=== PATIENT | male | born 1960 | race Caucasian/White ===

== ENCOUNTER 2017-01-03 18:46 | Inpatient (IN) | payer OTHER ==
[~2017-01-03] VITALS: Ht 175.3 cm; Wt 78.5 kg
[2017-01-03 20:24] LABS: HEMOGLOBIN 14.1 gm/dl (14.0-17.5); RED BLOOD COUNT 4.2 M/UL (4.20-5.50); WHITE BLOOD COUNT 15.9 K/UL (4.5-11.0)
[2017-01-04] MEDS ORDERED: QUINAPRIL HCL40 MG PO (00:53)
[2017-01-04] MEDS ORDERED: NEURONTIN 300300 MG PO (00:53)
[2017-01-04] MEDS ORDERED: NOVOLOG MI100 UNIT/2 SQ (00:54)
[2017-01-04] MEDS ORDERED: ALPRAZOLAM0.5 MG PO (00:56)
[2017-01-04] MEDS ORDERED: NORVASC 5 MG TAB5 MG PO (00:56)
[2017-01-04] MEDS ORDERED: VIAGRA100 MG PO (00:58)
[2017-01-04] MEDS ORDERED: VITAMIN D50000 UNIT PO (00:59)
[2017-01-04 03:33] LABS: HEMOGLOBIN 12.2 gm/dl (14.0-17.5)
[2017-01-04 03:35] LABS: RED BLOOD COUNT 3.67 M/UL (4.20-5.50); WHITE BLOOD COUNT 7.2 K/UL (4.5-11.0)
[2017-01-04 09:22] LABS: HEMOGLOBIN 12.5 gm/dl (14.0-17.5); RED BLOOD COUNT 3.69 M/UL (4.20-5.50); WHITE BLOOD COUNT 5.2 K/UL (4.5-11.0)
[2017-01-04 09:37] LABS: BUN/CREATININE RATIO 12 (0-10)
[2017-01-04 13:53] LABS: HEMOGLOBIN 12.4 gm/dl (14.0-17.5); RED BLOOD COUNT 3.7 M/UL (4.20-5.50); WHITE BLOOD COUNT 5.5 K/UL (4.5-11.0)
[2017-01-04 14:15] LABS: BUN/CREATININE RATIO 13 (0-10)
[2017-01-04 19:06] LABS: BUN/CREATININE RATIO 12 (0-10)
[2017-01-05 07:30] LABS: BUN/CREATININE RATIO 9 (0-10)
[2017-01-05 13:24] LABS: HEMOGLOBIN 12.1 gm/dl (14.0-17.5); RED BLOOD COUNT 3.62 M/UL (4.20-5.50); WHITE BLOOD COUNT 5.3 K/UL (4.5-11.0)
[2017-01-06 05:07] LABS: HEMOGLOBIN 11.3 gm/dl (14.0-17.5); RED BLOOD COUNT 3.45 M/UL (4.20-5.50)
[2017-01-06 05:15] LABS: WHITE BLOOD COUNT 3.8 K/UL (4.5-11.0)
[2017-01-06 05:32] LABS: BUN/CREATININE RATIO 10 (0-10)
[2017-01-07 06:39] LABS: HEMOGLOBIN 11.7 gm/dl (14.0-17.5); RED BLOOD COUNT 3.52 M/UL (4.20-5.50); WHITE BLOOD COUNT 3.9 K/UL (4.5-11.0)
[2017-01-07 06:57] LABS: BUN/CREATININE RATIO 14 (0-10)
[2017-01-08 04:46] LABS: HEMOGLOBIN 11.4 gm/dl (14.0-17.5); RED BLOOD COUNT 3.41 M/UL (4.20-5.50); WHITE BLOOD COUNT 4.4 K/UL (4.5-11.0)
[2017-01-08 05:15] LABS: BUN/CREATININE RATIO 13 (0-10)
[2017-01-08] MEDS ORDERED: ASPIRIN CHEWABL81 MG PO (14:26)
[2017-01-08] MEDS ORDERED: LIPITOR40 MG PO (14:27)
[2017-01-08] MEDS ORDERED: NOVOLOG MI100 UNIT/2 SQ (14:29)
[2017-01-08] MEDS ORDERED: LOPRESSOR 25 MG25 MG PO (14:30)
[2017-01-08] MEDS ORDERED: BRILINTA90 MG PO (14:30)
[2017-01-08] MEDS ORDERED: TYLENOL 325MG325 MG PO (14:31)
[2017-01-08] MEDS ORDERED: LEVAQUIN750 MG PO (14:33)
== END 2017-01-08 15:23 | disposition home or self-care (01) | DRG 250 ==
LOC: ER1 18:46 → ZEROF 23:06 → CCU 01-04 00:34 → M/S 01-06 20:44 → PROG CARE 01-07 18:25
PROVIDERS: Family Medicine; Internal Medicine Cardiovascular Disease; Internal Medicine Nephrology; Specialist/Technologist Athletic Trainer; ADMIT Internal Medicine
PROC: 02703ZZ Dilation of Coronary Artery, One Artery, Percutaneous Approach (ICD-10-PCS; principal; 2017-01-07)
DX: I21.4 Non-ST elevation (NSTEMI) myocardial infarction (principal); J69.0 Pneumonitis due to inhalation of food and vomit; E13.10 Other specified diabetes mellitus with ketoacidosis without coma; J96.01 Acute respiratory failure with hypoxia; M62.82 Rhabdomyolysis; N17.9 Acute kidney failure, unspecified; D61.818 Other pancytopenia; J98.11 Atelectasis; K92.0 Hematemesis; I25.10 Atherosclerotic heart disease of native coronary artery without angina pectoris; Z95.5 Presence of coronary angioplasty implant and graft; R74.0 Nonspecific elevation of levels of transaminase and lactic acid dehydrogenase [LDH]; E86.0 Dehydration; F41.0 Panic disorder [episodic paroxysmal anxiety]; E78.5 Hyperlipidemia, unspecified; E87.5 Hyperkalemia; F10.10 Alcohol abuse, uncomplicated; N40.0 Benign prostatic hyperplasia without lower urinary tract symptoms; D64.9 Anemia, unspecified; F17.290 Nicotine dependence, other tobacco product, uncomplicated; Z82.49 Family history of ischemic heart disease and other diseases of the circulatory system; Z79.899 Other long term (current) drug therapy; Z79.4 Long term (current) use of insulin; I50.9 Heart failure, unspecified; R31.9 Hematuria, unspecified; R74.8 Abnormal levels of other serum enzymes; R07.9 Chest pain, unspecified; G89.4 Chronic pain syndrome; G56.00 Carpal tunnel syndrome, unspecified upper limb; Z83.3 Family history of diabetes mellitus; K70.9 Alcoholic liver disease, unspecified; Z51.5 Encounter for palliative care
CPT/HCPCS: ECHO; 36415; 36600; 71010; 71020; 80048; 80053; 80076; 80307; 81001; 82009; 82550; 82553; 82607; 82693; 82746; 82800; 82803; 82962; 83036; 83605; 83690; 83735; 83874; 83880; 83921; 83930; 84100; 84484; 85025; 85027; 85347; 87040; 87086; 92920; 93005; 93306; 94640; 94664; 96361; 96374; 96375; 96376; 99285; C1725; C1769; C1887; C9113; G0480; J0461; J0583; J0610; J1644; J1815; J2060; J2250; J2405; J2543; J2550; J3010; J3411; J7030; J7050; Q9963

== ENCOUNTER 2017-01-11 23:01 | Inpatient (IN) | payer OTHER ==
[~2017-01-11] VITALS: Ht 175.3 cm; Wt 78.5 kg
[~2017-01-11 23:01] MED LIST: ALPRAZOLAM0.5 MG PO; ASPIRIN CHEWABL81 MG PO; BRILINTA90 MG PO; LEVAQUIN750 MG PO; LIPITOR40 MG PO; LOPRESSOR 25 MG25 MG PO; NEURONTIN 300300 MG PO; NORVASC 5 MG TAB5 MG PO; NOVOLOG MI100 UNIT/2 SQ; QUINAPRIL HCL40 MG PO; TYLENOL 325MG325 MG PO; VIAGRA100 MG PO; VITAMIN D50000 UNIT PO
[2017-01-11 23:40] LABS: RED BLOOD COUNT 3.61 M/UL (4.20-5.50); WHITE BLOOD COUNT 11.3 K/UL (4.5-11.0)
[2017-01-12 05:05] LABS: RED BLOOD COUNT 3.57 M/UL (4.20-5.50)
[2017-01-12 05:11] LABS: WHITE BLOOD COUNT 7.4 K/UL (4.5-11.0)
[2017-01-12 19:20] LABS: BUN/CREATININE RATIO 14 (0-10)
[2017-01-13 01:15] LABS: BUN/CREATININE RATIO 12 (0-10)
[2017-01-13 03:48] LABS: HEMOGLOBIN 11.3 gm/dl (14.0-17.5); RED BLOOD COUNT 3.4 M/UL (4.20-5.50)
[2017-01-13 03:50] LABS: WHITE BLOOD COUNT 9.7 K/UL (4.5-11.0)
[2017-01-13 04:10] LABS: BUN/CREATININE RATIO 11 (0-10)
[2017-01-13 07:14] LABS: BUN/CREATININE RATIO 10 (0-10)
[2017-01-13 18:32] LABS: BUN/CREATININE RATIO 7 (0-10)
[2017-01-14 00:42] LABS: BUN/CREATININE RATIO 7 (0-10)
[2017-01-14 06:01] LABS: HEMOGLOBIN 9.8 gm/dl (14.0-17.5); RED BLOOD COUNT 2.97 M/UL (4.20-5.50); WHITE BLOOD COUNT 3.8 K/UL (4.5-11.0)
[2017-01-14 06:16] LABS: BUN/CREATININE RATIO 8 (0-10)
[2017-01-14 12:24] LABS: BUN/CREATININE RATIO 8 (0-10)
[2017-01-15 06:29] LABS: HEMOGLOBIN 10.9 gm/dl (14.0-17.5); WHITE BLOOD COUNT 3.6 K/UL (4.5-11.0)
[2017-01-15 06:33] LABS: RED BLOOD COUNT 3.3 M/UL (4.20-5.50)
[2017-01-15 06:38] LABS: BUN/CREATININE RATIO 11 (0-10)
[2017-01-16 10:07] LABS: BUN/CREATININE RATIO 10 (0-10)
[2017-01-16] MEDS ORDERED: PROTONIX40 MG PO (12:12)
[2017-01-16] MEDS ORDERED: VITAMIN B-1100 MG PO (12:19)
== END 2017-01-16 13:45 | disposition home health service (06) | DRG 380 ==
LOC: ER1 23:01 → CCU 01-12 00:32 → M/S 01-12 00:32 → ZEROF 01-12 00:32 → CCU 01-12 02:54 → M/S 01-14 15:32
PROVIDERS: Family Medicine; Internal Medicine Gastroenterology; Internal Medicine Nephrology; Specialist/Technologist Athletic Trainer; ADMIT Internal Medicine
PROC: 02HV33Z Insertion of Infusion Device into Superior Vena Cava, Percutaneous Approach (ICD-10-PCS; 2017-01-12)
PROC: 0DB68ZX Excision of Stomach, Via Natural or Artificial Opening Endoscopic, Diagnostic (ICD-10-PCS; principal; 2017-01-15 14:30)
DX: K22.10 Ulcer of esophagus without bleeding (principal); G93.41 Metabolic encephalopathy; E10.10 Type 1 diabetes mellitus with ketoacidosis without coma; N17.9 Acute kidney failure, unspecified; E87.0 Hyperosmolality and hypernatremia; E86.0 Dehydration; E87.5 Hyperkalemia; E10.21 Type 1 diabetes mellitus with diabetic nephropathy; I25.10 Atherosclerotic heart disease of native coronary artery without angina pectoris; E87.6 Hypokalemia; I10 Essential (primary) hypertension; K44.9 Diaphragmatic hernia without obstruction or gangrene; E78.5 Hyperlipidemia, unspecified; D64.9 Anemia, unspecified; K70.9 Alcoholic liver disease, unspecified; E83.39 Other disorders of phosphorus metabolism; R68.0 Hypothermia, not associated with low environmental temperature; N40.0 Benign prostatic hyperplasia without lower urinary tract symptoms; K21.0 Gastro-esophageal reflux disease with esophagitis; F41.9 Anxiety disorder, unspecified; I25.2 Old myocardial infarction; Z95.5 Presence of coronary angioplasty implant and graft; Z72.89 Other problems related to lifestyle; Z79.4 Long term (current) use of insulin; Z79.01 Long term (current) use of anticoagulants; Z79.82 Long term (current) use of aspirin; Z79.1 Long term (current) use of non-steroidal anti-inflammatories (NSAID); Z79.899 Other long term (current) drug therapy
CPT/HCPCS: 36415; 36600; 51702; 70450; 71010; 71250; 80048; 80053; 82009; 82043; 82140; 82550; 82553; 82570; 82803; 82962; 83605; 83735; 83874; 83880; 84100; 84132; 84133; 84156; 84300; 84484; 84681; 85025; 85027; 85379; 85610; 85730; 87040; 93005; 94640; 94664; 96374; 96375; 99285; C1751; C9113; J0610; J1815; J2060; J2250; J2405; J3010; J3411; J3480; J7030; J7040; J7050